=== PATIENT | female | born 1940 | race Two or more races ===

== ENCOUNTER 2021-09-08 23:14 | Emergency (ER) | payer OTHER ==
[~2021-09-08] VITALS: Ht 152.4 cm; Wt 47.6 kg
--- NOTE | 2021-09-08 23:49 | NUR ---
[id number] FRM HOME C/O L LEG PAIN S/P MECHANICAL FALL AT HOME "SLIPPED ON HARDWOOD" WHILE GETTING OUT OF BED. -HEAD TRAUMA, KO, OR BLOOD THINNERS. COMPLAINING OF L UPPER LEG PAIN RADIATING FROM HIP DOWN THIGH WITH MOVEMENT, NO INCREASED PAIN TO EXTREMITY ON PALPATION. NO GROSS DEFORMITIES OR ROTATION NOTED. PT AWAKE AND ALERT X4 BREATHING EVEN AND UNLABORED PLACED ON MONITOR AND ALL V/S WNL.
[2021-09-09] MEDS ORDERED: ACETAMINOPHEN 325 MG TABLET PO ONE (00:30)
[2021-09-09] MEDS ORDERED: ACETAMINOPHEN 325 MG TABLET ONE (00:32)
[2021-09-09 00:36] LABS: BASOPHILS # (AUTO) 0.1 K/uL (0.0-0.2); BASOPHILS % (AUTO) 0.8 % (0.0-2.0); EOSINOPHILS % (AUTO) 0.3 % (0.0-6.0); HEMATOCRIT 33 % (33-45); HEMOGLOBIN 10.9 g/dL (11.5-14.8); LYMPHOCYTES # (AUTO) 0.5 K/uL (0.8-4.8); MEAN CORPUSCULAR HGB CONC 33 g/dl (31.0-36.0); MEAN CORPUSCULAR VOLUME 98 fL (82-100); MONOCYTES # (AUTO) 0.9 K/uL (0.1-1.30); MONOCYTES % (AUTO) 5.1 % (2.0-12.0); NEUTROPHILS # (AUTO) 15.4 K/uL (1.8-8.9); NEUTROPHILS % (AUTO) 90.8 % (43.0-81.0); PLATELET COUNT (AUTO) 476 K/uL (150-450); RED BLOOD CELL COUNT(AUTO) 3.36 MIL/uL (4.0-5.2)
--- NOTE | 2021-09-09 00:39 | NUR ---
xray at bedside
[2021-09-09 00:57] LABS: CALCIUM, SERUM 7.2 mg/dL (8.5-10.1); CARBON DIOXIDE 26 mmol/L (21-32); CHLORIDE 95 mmol/L (98-107); CREATININE 0.8 mg/dL (0.6-1.3); GLUCOSE 182 mg/dL (74-106); POTASSIUM 3.8 mmol/L (3.5-5.1); SODIUM SERUM 129 mmol/L (136-145); UREA NITROGEN, BLOOD 18 mg/dL (7-18)
--- NOTE | 2021-09-09 01:20 | NUR ---
COVID SWAB DONE AND SENT TO LAB
[2021-09-09] MEDS ORDERED: FUROSEMIDE 40 MG/4 ML VIAL ONE (01:33)
[2021-09-09] MEDS ORDERED: KETOROLAC TROMETHAMINE 15 MG/ML VIAL ONE (01:43)
[2021-09-09] MEDS ORDERED: FUROSEMIDE 40 MG/4 ML VIAL IV ONE (02:00)
[2021-09-09] MEDS ORDERED: KETOROLAC TROMETHAMINE INJ 30 MG/ML VIAL IV ONE (02:00)
--- NOTE | 2021-09-09 02:28 | NUR ---
[facility] PAGED PER DR WALSH.
--- NOTE | 2021-09-09 02:33 | NUR ---
16FR CAMP CATHETER INSERTED PER MD ORDER AND SECURED IN PLACE. PT TOLERATED WELL. 60ML YELLOW OUTPUT. URINE SAMPLE COLLECTED AND SENT TO LAB.
[2021-09-09] MEDS ORDERED: MORPHINE SULFATE INJ 2 MG/ML DISP.SYRIN ONE ×2 (02:58→04:24)
[2021-09-09] MEDS ORDERED: MORPHINE SULFATE INJ 2 MG/ML DISP.SYRIN IV ONE ×2 (03:00→05:30)
[2021-09-09 04:57] LABS: BILIRUBIN,URINE NEGATIVE (NEGATIVE); LEUKOCYTE ESTERASE ,URINE NEGATIVE (NEGATIVE); NITRITE, URINE NEGATIVE (NEGATIVE); PH,URINE 5.5 (5.0-8.0); PROTEIN,URINE NEGATIVE (NEGATIVE); UGLUCOSE NEGATIVE (NEGATIVE); UROBILINOGEN,URINE 0.2 EU/dL (0.2)
[2021-09-09] MEDS ORDERED: VANCOMYCIN 1 GM in IV D5W 250 ML IV ONE (05:00)
[2021-09-09] MEDS ORDERED: CEFEPIME 1 GM in IV D5W 50 ML IV ONE (05:00)
[2021-09-09 05:04] LABS: COLOR,URINE LIGHT YELLOW (YELLOW)
[2021-09-09] MEDS ORDERED: CEFEPIME 1 GM VIAL ONE (05:08)
--- NOTE | 2021-09-09 05:31 | NUR ---
SPOKE TO DI AT [facility] AND INFORMED HER DR WALSH WOULD LIKE TO PAGE THE ACCEPTING TO PRESENT NEW LABS. ACCEPTING CALL BACK FROM [place] TEAM. NO UPDATES REGARDING ECCEPTANCE INFO PER DI.
[2021-09-09] MEDS ORDERED: VANCOMYCIN 1 GM VIAL ONE (05:35)
--- NOTE | 2021-09-09 06:11 | NUR ---
CALL FROM [facility]. PT ACCEPTED TO [facility] ER BY DR BLUNT. [facility] ETA [id number]
--- NOTE | 2021-09-09 07:35 | NUR ---
EMT AT BEDSIDE TO PICKUP PATIENT
--- NOTE | 2021-09-09 07:35 | NUR ---
[facility] IN STABLE CONDITION FOR TRANSFER TO [facility]
[2021-09-09 07:38] VITALS: BP 120/81
[2021-09-09 08:29] LABS: BILIRUBIN,DIRECT 0.3 mg/dL (0.0-0.2); BILIRUBIN,TOTAL 0.9 mg/dL (0.2-1.0)
== END 2021-09-09 07:39 | disposition short-term general hospital (02) ==
LOC: ER 23:26
DX: S72.002A Fracture of unspecified part of neck of left femur, initial encounter for closed fracture (principal); W18.30XA Fall on same level, unspecified, initial encounter; Y92.018 Other place in single-family (private) house as the place of occurrence of the external cause; J18.9 Pneumonia, unspecified organism; Z20.822 Contact with and (suspected) exposure to COVID-19; Z85.118 Personal history of other malignant neoplasm of bronchus and lung; I25.2 Old myocardial infarction; D64.9 Anemia, unspecified; E87.1 Hypo-osmolality and hyponatremia; E87.8 Other disorders of electrolyte and fluid balance, not elsewhere classified; R00.0 Tachycardia, unspecified; I45.10 Unspecified right bundle-branch block; R77.8 Other specified abnormalities of plasma proteins; I50.9 Heart failure, unspecified
CPT/HCPCS: 36415; 51701; 71045; 72170; 73552; 73564; 80048; 81003; 82247; 82248; 83605 ×2; 83880; 84484 ×2; 85025; 87040 ×2; 87086; 87426; 93005 ×2; 96365; 96367; 96375; 96376; 99291; C9803; J0692; J1885; J1940; J2270 ×2; J3370; J7060